=== PATIENT | female | born 1935 | race Caucasian/White ===

== ENCOUNTER 2025-01-27 12:24 | Outpatient (AMB) | payer MEDICARE, SELFPAY ==
--- OUTSIDE RECORDS SUMMARY | 2024-06-12 08:00 | XMS_ITS ---
Author Organization [facility] Address [address] [place] [address] Care Team Providers Care Workers Compensation Attorney Name Role Phone Anna Umana Primary Care Provider Enid Spencer [phone] REASON FOR VISIT r/s for sooner apt Encounters Encounter Location Date Provider Diagnosis [address] [phone] 06/12/2024 Enid Peterson Plan Of Treatment Next Appt Details Provider Name:Enid aguirre, 02/23/2025 11:15:00 AM, [address] [place] [address], [phone], Progress Notes * Lety CENTENOeDOB:[birth year] (89 yo F)Acc No.[id number]:06/12/2024 Progress Note Patient: Karla DOTY Provider: Penny Peterson DPM :1935 A ge:88 Y S ex:Female Date:06/12/2024 Address:[address] [place], [place] [id number] Pcp:Anna Umana Subjective: * Chief Complaints: * 1 . R/s for sooner apt. * Medical History: Objective: * Vitals: Assessment: Plan: * Treatment: * Images: * The named appointment provid er may or may not be the originator of this progress note, and it is not deemed complete until electronically signed by the appointment provider. Sign off status: Pending * Provider: Penny Peterson, DPVera Date: 0 06/12/2024 Generated for Vahid barrientos/Conrad/Prem on: 0 01/27/2025 02:56 PM EDT
--- NOTE | 2025-01-27 12:27 | A.OFFVIS_ITS ---
Intake Visit Reasons: 3M FERREIRA Depression Allergies No Known Allergies Allergy (Verified 01/27/25 12:35) Medication List - Last Reconciled 01/27/25 by Giovana Navarro CNP amiodarone 200 mg PO DAILY apixaban (Eliquis) 5 mg PO BID atorvastatin 80 mg PO DAILY imzlqecfox-zusjkdmisrcie-xnpb 50-325-40 mg 2 tabs PO DAILY PRN calcium carbonate 500 mg PO BID carvedilol 12.5 mg PO BID cholecalciferol (vitamin D3) 50 mcg PO DAILY dapagliflozin propanediol (Farxiga) 10 mg PO DAILY insulin glargine (Lantus Solostar U-100 Insulin) 29 units subcut BEDTIME loperamide 2 mg PO QID PRN metformin 1,000 mg PO BID sertraline 25 mg PO DAILY 90 days torsemide 20 mg PO DAILY venlafaxine ER 150 mg PO QAM HPI Comments Details: 89-year-old woman with h/o lymphoma s/p chemo, diabetes, HTN, CAD s/p CABG, RLS, 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 She was doing okay. Headaches were about the same. She was using Tylenol as needed which helped some, along with ice and topical CBD. Mood was so-so. She was doing some exercises, including yoga. Walking with walker, no falls. She also enjoyed coloring. [facility] Medical History (Updated 01/27/25 @ 12:32 by Giovana Navarro CNP) HLD (hyperlipidemia) GERD (gastroesophageal reflux disease) Extrapyramidal and movement disorder, unspecified Depression Anxiety Lymphoma RLS (restless legs syndrome) Temporomandibular disorder Chronic headache Diabetes mellitus Surgical History (Updated 01/19/25 @ 14:54 by MARRY Dave) S/P hip replacement Review of Systems Const Denies chills, Denies daytime sleepiness, Denies difficulty sleeping, Denies fatigue, Denies fever(s), Denies frequent falls, Reports headache(s), Denies increased appetite, Denies poor appetite, Denies snoring, Denies weakness, Denies weight gain and Denies weight loss Eyes Denies loss of vision ENT Denies vertigo, Denies dizziness and Reports headache(s) Card Denies chest pain at rest, Denies chest pain with activity, Denies syncope, Denies leg edema and Denies palpitations Resp Denies snoring GI Denies constipation, Denies heartburn, Denies diarrhea and Denies nausea Denies urinary frequency, Denies urinary incontinence and Denies urinary urgency Musc Reports abnormal gait (balance difficulty), Denies numbness and Denies tingling Skin/Breast Denies dry skin and Denies rash Neuro Reports abnormal gait (balance difficulty), Denies vertigo, Denies dizziness, Denies syncope, Denies frequent falls, Reports headache(s), Denies lack of coordination, Denies loss of vision, Denies memory loss, Denies numbness, Denies restless legs, Denies seizure-like activity, Denies tingling, Denies paresthesias, Denies tremor(s) and Denies weakness Psych Reports anxiety, Reports depression, Denies auditory hallucinations, Denies memory loss, Denies visual hallucinations and Denies suicidal ideation Endo Denies fatigue and Denies palpitations Physical Exam Const Other: General Appearance:? normal, in no acute distress. Skin:? no rashes, no significant birthmarks. Heart:? S1, S2 normal, no murmurs. Lungs:? clear anteriorly and posteriorly. Extremities:? no edema. Psych:? alert, oriented, cognitive function intact, cooperative with exam. Neuro Other: Mental Status:?Normal attention, orientation, memory and affect.? Cranial Nerves:?Pupils are equal, round and reactive to light. External occular muscles are intact. Visual phelps are full. Face is symmetrical. Facial sensations are normal. Tongue is midline. Palate elevates symmetrically. Shoulder shrugging is normal. Hearing to bedside conversation is decreased. Sensory Exam:?....? Coordination:?No ataxia,?no titubation.? Gait Exam: With walker. Cerebellar Signs:?Efgwnr-uo-yfof is okay. Extrapyramidal System:?No tremor, rigidity with normal facial expressions.? Pronator Drift:?Not present.? Involuntary Movements:?No tremors seen.? Speech:?Normal.? Results Reviewed Results Reviewed: [place] [facility] [place] OP: 17cm, WBCs 2, RBCs 0, Glu 70, Pro 33.2, IgG ind: WNL, OCBs: 3 in serum and CSF, Cytology: neg. 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, mild MVD Assessment & Plan Assessment & Plan (1) Chronic headache: Code(s): R51.9 - Headache, unspecified; G89.29 - Other chronic pain Category: Medical Qualifiers: Headache type: unspecified Intractability: not intractable Qualified Code(s): R51.9 - Headache, unspecified; G89.29 - Other chronic pain Plan: Continue venlafaxine HCl ER 150mg 1 capsule daily Continue kkgnzbeytq-FWJC-gsot 50-325-40mg 2 tablets as needed for headache #10 for 30 days (2) Temporomandibular disorder: Code(s): M26.609 - Unspecified temporomandibular joint disorder, unspecified side Category: Medical (3) RLS (restless legs syndrome): Code(s): G25.81 - Restless legs syndrome Category: Medical (4) Depression: Code(s): F32.A - Depression, unspecified Category: Medical Qualifiers: Depression Type: unspecified Qualified Code(s): F32.A - Depression, unspecified Plan: Continue sertraline 25mg 1 tablet daily. Plan Meds tried: Topiramate, Venlafaxine, Cyclobenzperine, (Amitryptiline, and beta blockers are contraindicated), Depakote, Ajovy, Aimovig, gabapentin, nurtec Coding Level of Care Code Est Pt Level 4 (07756) Diagnoses Chronic nonintractable headache, unspecified headache type R51.9; G89.29 Headache type: unspecified Intractability: not intractable Temporomandibular disorder M26.609 RLS (restless legs syndrome) G25.81 Depression, unspecified depression type F32.A Depression Type: unspecified
--- OUTSIDE RECORDS SUMMARY | 2025-01-27 14:57 | XMS_ITS ---
Author Name [facility] Organization Unknown Care Team Organization Name Specialty Phone Email Start Date End Da [facility] 01/13/2025 [facility] Anna Umana Primary Care 04/03/2022
--- OUTSIDE RECORDS SUMMARY | 2025-01-27 14:57 | XMS_ITS | Clinical Summary ---
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 Active venlafaxine XR (EFFEXOR-XR) 150 mg 24 hr capsule Take 1 Capsule by mouth every morning. Active loperamide (IMODIUM) 2 mg capsule Take 1 capsule (2 mg total) by mouth 4 (four) times a day if needed for diarrhea. 12/31/19 24 Active freestyle (FreeStyle Lancets) 28 gauge lancets Use to test blood sugar bid dxe11.9 200 each 1 04/22/20 24 Active butalbital-acet aminophen-caffe ine (FIORICET, ESGIC) 50-325-40 mg per tablet Take 2 tablets by mouth 1 (one) time each day if needed for headaches. 03/27/20 24 Active calcium carbonate 1,500 mg (600 mg elemental calcium) tablet Take by mouth 2 (two) times a day. Active melatonin 3 mg tablet Take 1 tablet (3 mg total) by mouth at bedtime. Active sertraline (ZOLOFT) 25 mg tablet Take 1 tablet (25 mg total) by mouth 1 (one) time each day. 03/26/20 24 Active blood sugar diagnostic (FreeStyle Lite Strips) test strip Use to test blood sugar bid dxe11.9 200 each 1 04/22/20 24 Active ascorbic acid (VITAMIN C) 250 mg tablet Take 1 tablet (250 mg total) by mouth 2 (two) times a day. Active Lactobacillus acidophilus (Probiotic Acidophilus) 250 million cell capsule Take 1 capsule by mouth 1 (one) time each day. Active apixaban (ELIQUIS) 5 mg tablet Take 1 tablet (5 mg total) by mouth 2 (two) times a day. 180 tablet 1 06/23/19 25 Active sacubitriL-vals anuj (ENTRESTO) 49-51 mg per tablet Take 1 tablet by mouth 2 (two) times a day. 180 tablet 3 06/23/19 25 Active carvediloL (Coreg) 12.5 mg tablet Take 1 tablet (12.5 mg total) by mouth 2 (two) times a day with meals. 180 each 1 06/23/19 25 Active pen needle, diabetic (Pen Needle) 31 gauge x 3/16 needleIndicatio ns:Controlled type 2 diabetes mellitus with microalbuminuri a, with long-term current use of insulin (CMS/[facility] V24, CMS/HCC V28) Inject 1 each under the skin 1 (one) time each day. 100 each 3 07/30/19 25 Active torsemide (DEMADEX) 20 mg tablet TAKE 1 TABLET(20 MG) BY MOUTH 1 TIME EACH DAY 90 tablet 1 12/10/19 25 Active amiodarone (PACERONE) 200 mg tablet TAKE 1 TABLET(200 MG) BY MOUTH 1 TIME EACH DAY 90 tablet 1 12/10/19 25 Active Lantus Solostar U-100 Insulin 100 unit/mL (3 mL) injection pen INJECT 29 UNITS SUBCUTANEOUS AT BEDTIME 45 mL 12/11/19 25 Active dapagliflozin propanediol (FARXIGA) 10 mg tablet Take 1 tablet (10 mg total) by mouth 1 (one) time each day. 90 tablet 1 12/17/19 25 Active pantoprazole (PROTONIX) 20 mg EC tablet Take 1 tablet (20 mg total) by mouth 1 (one) time each day before breakfast. 90 tablet 1 12/19/19 25 Active atorvastatin (LIPITOR) 80 mg tablet Take 1 tablet (80 mg total) by mouth at bedtime. 90 tablet 1 01/05/20 25 Active atorvastatin (LIPITOR) 80 mg tablet Take 1 tablet (80 mg total) by mouth at bedtime. 90 tablet 1 06/22/19 25 025 Discontin ued(Reord er) Active Problems Problem Noted Date Diagnosed Date Acute on chronic diastolic ( congestive) heart failure ([facility] V24, [facility] V28) 10/15/2024 Assessment & Plan (10/15/2024 1:06 PM EDT): Orthostatic hypotension 06/22/2024 Takotsubo syndrome 06/22/2024 Adrenal nodule ([facility] V24) 06/03/2024 CHF (congestive heart failure) ([facility] V24, [facility] /[facility] V28) 05/31/2024 Assessment & Plan (10/15/2024 1:06 PM EDT): Microalbuminuria 04/01/2017 Snoring 03/11/2017 Overview (02/27/2024): 03/06/2017 Home Sleep Study did not reveal sleep apnea. Lung nodule 09/10/2016 Overview (02/27/2024): 5 mm right, others smaller 10/09, no change 10/10 Atrial fibrillation ([facility] V24, [facility] V28) 1 07/01/2015 Overview (05/31/2024): Post op CABG Assessment & Plan (11/03/2024 10:35 AM EDT): Orders: ECG 12 lead Assessment & Plan (10/15/2024 1:06 PM EDT): Assessment & Plan (06/30/2024 1:09 PM EST): Orders: ECG 12 lead Transthoracic echocardiogram (TTE) complete with PRN contrast, bubble, strain, and 3D order panel; Future Carotid stenosis 04/09/2016 Overview (02/27/2024): Bilateral 50-69% 04/11 Peripheral arterial disease ([facility] V24) 2015 Intramural leiomyoma of uterus 09/28/2015 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 09/20/2015 Depression 08/25/2015 Tubular adenoma 06/29/2015 Overview (02/27/2024): 2 tubular adenomas 06/11; no further surveillance CN recommended Osteoporotic fracture of rig ht hip ([facility] V24, [facility] V28) 01/15/2011 Overview (02/27/2024): 11/15 right, fracture neck of the femur; ORIF Heartburn 04/18/2010 Chronic tension headaches 04/11/2010 Overview (02/27/2024): With jaw pain; was seeing Frannie Fang CAD (coronary artery disease) 06/08/2008 Overview (02/27/2024): Taxus RCA and LCx 75% left main disease; CABG x 3 04/11 Assessment & Plan (10/15/2024 1:06 PM EDT): Orders: Comprehensive metabolic panel; Future Hyperlipidemia 07/25/2006 Assessment & Plan (10/15/2024 1:06 PM EDT): Orders: Lipid panel with reflex to direct LDL; Future Hypertension 03/01/2006 Assessment & Plan (10/15/2024 1:06 PM EDT): Orders: Comprehensive metabolic panel; Future Osteoporosis 11/16/2005 Other psoriasis 11/16/2005 DM (diabetes mellitus), type 2 with renal complications ([facility] V24, [facility] V28) Assessment & Plan (10/15/2024 1:06 PM EDT): Orders: Hemoglobin A1c; Future Comprehensive metabolic panel; Future History of lymphoma Overview (10/15/2024): 2007, treated Resolved Problems Problem Noted Date Diagnosed Date Resolved Date Acute systolic congestive he art failure ([facility] V24, [facility] V28) 06/03/2024 06/03/2024 Encounters Date Type Department Care Team Description 01/20/2025 11:00 AM EDT Office Visit Endocrinology - [address] [phone] Best Pretty MD Adrenal nodule ([facility] V24) (Primary Dx) 11/17/2024 9:37 AM EDT - 11/17/2024 11:59 PM EDT Hospital Encounter Radiology Department - [address] [phone] Adrenal nodule ([facility] V24) Discharge Disposition: Home or Self Care 11/03/2024 9:50 AM EDT Office Visit [facility] [address] [facility] [address] [place] [address] Davon Hope MD Atrial fibrillation, unspecified type ([facility]/HCC V24, CMS/HCC V28) (Primary Dx); Cardiomyopathy, unspecified type ([facility] V24, [facility]/HCC V28) from Last 3 Months Immunizations Name Administration Dates Next Due Influenza trivalent, 0.5mL ( Fluzone High-dose) 65yo and older 02/11/2023,03/30/2022,02/23/2021,02/22,02/17/2019,03/05/2018,02/06/2017 ,02/01/2016,02/01/2015,02/13/2012,10/2010 Influenza trivalent, with pr eservative (Fluzone; Afluria) 6mo and older 02/24/2013,03/22/2008,05/13/2007 PPD Test 05/09/2007 Pneumococcal conjugate 13 va lent (Prevnar 13, PCV13) 2mo and older 02/23/2015 Pneumococcal polysaccharide 23 valent (Pneumovax 23) 2yo and older 07/25/2006 Td Tetanus diptheria (Tdvax) 7yo and older 01/24/2024 Tdap Tetanus diptheria acell ular pertussis (Boostrix; Adacel) 7yo and older 10/21/2013 Zoster Live 10/08/2014 Surgical History Surgery Date Site/Laterality Comments OTHER SURGICAL HISTORY : LEFT HIP PARTIAL ARTHROPLASTY ESOPHAGOGASTRODUODENOSCOPY 01/05/11 : streaky antral gastritis; no H. pylori COLONOSCOPY 05/30/12 adenomas, hemorrhoids and tics. Repeat in 3 yrs COLONOSCOPY 06/21/15 : adenomas and tics; would not repeat SCREENING MAMMOGRAM 04/03/2024 Bilateral Medical History Medical History Date Comments Essential hypertension, benign 03/01/2006 Coronary atherosclerosis of unspecified type of vessel, [place] or graft 07/25/2006 cath 07/03 [facility]- stents in RCA and circumflex Pure hypercholesterolemia 07/25/2006 Lymphoma ([facility] V24, [facility] V28) Hypertension 03/01/2006 Hyperlipidemia 07/25/2006 Tubular adenoma 06/29/2015 2 tubular adenom as 06/11; no further surveillance CN recommended History of radius fracture 04/09/2016 Commi nuted right radial fracture 03/11 Carotid stenosis 04/09/2016 Bilateral 50-69 % 04/11 Atrial fibrillation ([facility] [place], [facility] V28) 04/30/2016 Post CABG 04/11 Lung nodule 09/10/2016 Microalbuminuria 04/01/2017 DM (diabetes mellitus), type 2 with renal complications ([facility] [place], [facility] V28) 04/01/2017 Fecal urgency CHF (congestive heart failur e) ([facility] [place], [facility] V28) 05/31/2024 Adrenal nodule ([facility] [place]24) 06/03/2024 Anxiety and depression Family History Medical History Relation Name Comments Heart attack Brother 1 age 76 Colon cancer Brother 2 Prostate cancer Father Stroke Mother Breast cancer Neg Hx Relation Name Status Comments Brother 1 Brother 2 Father Alive Mother Alive Social History Tobacco Use Types Packs/Day Years Used Date Smoking Tobacco: Former Cigarettes Q uit: 05/27/1983 Smokeless Tobacco: Never Tobacco Cessation:Counseling Given: Not Answered Alcohol Use Standard Drinks/Week Comments Yes 0 (1 standard drink = 0.6 oz pur e alcohol) Housing Instability Answer Date Recorde d Are you worried that in the next 2 months you may not have stable housing? No 10/15/2024 Food Access & Nutrition Answer Date Rec orded Do you have access to a vari ety of food including fruits and vegetables? No 10/15/2024 Access to Healthcare Answer Date Record ed Within the last 3 months, ho w many times did you visit the emergency department for your medical care? 0 10/15/2024 Financial Risk Answer Date Recorded How hard is it for you to pa y for the very basics like food, housing, medical care, and air conditioning / heating? Not very hard 10/15/2024 Transportation Answer Date Recorded Has the lack of transportati on kept you from meetings, work, or from getting things needed for daily living? No Has the lack of transportati on kept you from medical appointments or from getting medications? No 10/15/2024 Social Isolation Answer Date Recorded How often do you feel lonely or isolated from th ose around you? Never 10/15/2024 Food Risk Answer Date Recorded Within the past 12 months we worried whether our food would run out before we got money to buy more. Never true 10/15/2024 Within the past 12 months th e food we bought just didn't last and we didn't have money to get more. Never true 10/15/2024 Dependent Care Answer Date Recorded Do you need help finding or paying for care for your loved ones. For example, assistant child care teacher or elderly care for an older adult? No 10/15/2024 Education Answer Date Recorded Do you think completing more education or training, like finishing a GED, going to college, or learning a trade, would be helpful for you? N/A 10/15/2024 Employment and Income Answer Date Recor ded During the last four weeks, have you been actively looking for work? No 10/15/2024 Living Situation Answer Date Recorded What is your living situation? 0 10/15/2024 Comments Unknown Sex and Gender Information Value Date Recorded Sex Assigned at Not on file Legal Sex Female 7:14 AM EST Gender Identity Not on file Sexual Orientation Not on file Obstetrics History Para Term AB IAB SAB Ectopic Multiple Livin g Live Births 0 0 0 Last Filed Vital Signs Vital Sign Reading Time Taken Comments Blood Pressure 126/53 01/20/2025 11:04 AM EDT Pulse 61 11/03/2024 9:49 AM EDT Temperature 36.5 C (97.7 F) 01/20/2025 11:04 AM EDT Respiratory Rate 14 01/20/2025 11:04 AM EDT Oxygen Saturation 97% 11/03/2024 9:49 AM EDT Inhaled Oxygen Concentration - - Weight 64 kg (141 lb) 01/20/2025 11:04 AM EDT Height 152.4 cm (5') 01/20/2025 11:04 AM EDT Body Mass Index 27.54 01/20/2025 11:04 AM EDT Plan of Treatment Upcoming Encounters Date Type Department Care Team (Late st Contact Info) Description 02/05/2025 12:45 PM EDT Office Visit Adult Medicine [facility] [address] [place], [place] [phone] Anna Umana MD [address] [place], [place] 05/12/2025 1:30 PM EST Office Visit Vascular Surgery - [place] [address] [place] [address] Tami Iniguez MD [address] [place] [phone] Health Maintenance Due Date Last Done Comments Diabetes: Annual Retina Eye Exam 10/21/1945 RSV Immunization Adult Patients (1 - 1-dose 75+ series) 2012 Zoster Vaccines (1 of 2) 12/03/2014 10/08/2014 Diabetes: Annual Foot Exam 12/17/2024 12/18/2023 COVID-19 Vaccine ( season) 2025 06/01/2021, 09/29/2020, 09/07/2020 Influenza Vaccine (#1) 2025 , 03/30/2022, 02/23/2021, Additional history exists Diabetes: Blood Sugar Control Test (HGBA1C) 04/17/2025 10/15/2024, 06/03/2024, 12/26/2023, Additional history exists Falls Risk Assessment 10/15/2025 10/15/2024 , 10/15/2024, 12/26/2023 Hypertension/CHF/CAD Annual BMP Blood Test 10/15/2025 10/15/2024, 06/19/2024, 06/03/2024, Additional history exists Medicare Annual Wellness Visit 10/15/2025 10/15/2024 Social Influencers of Health Screening 10/15/2025 10/15/2024 Cholesterol Screening (Lipid Panel) 10/15/2029 10/15/2024, 09/25/2023, 09/25/2023 Osteoporosis Screening (Bone Density Screening) 06/24/2033 06/24/2023 DTaP,Tdap,and Td Vaccines (3 - Td or Tdap) 01/23/2034 01/24/2024, 10/21/2013 Pneumococcal Vaccine: 50+ Years Completed 02/23/2015, 07/25/2006 Depression Screening Completed 10/15/2024 HIB Vaccines Aged Out No longer eligi ble based on patient's age to complete this topic HPV Vaccines Aged Out No longer eligi ble based on patient's age to complete this topic Hepatitis A Vaccines Aged Out No long er eligible based on patient's age to complete this topic Hepatitis B Vaccines Aged Out No long er eligible based on patient's age to complete this topic IPV Vaccines Aged Out No longer eligi ble based on patient's age to complete this topic MMR Vaccines Aged Out No longer eligi ble based on patient's age to complete this topic Meningococcal ACWY Vaccine Aged Out N o longer eligible based on patient's age to complete this topic Meningococcal B Vaccine Aged Out No l onger eligible based on patient's age to complete this topic RSV Immunization Patients Under 20 months Aged Out No longer eligible based on patient's age to complete this topic Varicella Vaccines Aged Out No longer eligible based on patient's age to complete this topic Procedures Procedure Name Priority Date/Time Associated Diagnosis Comments MR ABDOMEN WO AND W CONTRAST Routine 11/17/2024 10:37 AM EDT Adrenal nodule ([facility]/HCC V24) ECG 12-LEAD Routine 11/03/2024 9:56 AM EDT Atrial fibrillation, unspecified type (CMS/HCC V24, CMS/HCC V28) METANEPHRINES, PLASMA FREE Routine 10/30/2024 1:38 PM EDT Adrenal nodule (CMS/HCC V24) COMPREHENSIVE METABOLIC PANEL Routine 10/15/2024 1:30 PM EDT Coronary artery disease involving [place] coronary artery of [place] heart without angina pectoris Primary hypertension Type 2 diabetes mellitus with stage 3 chronic kidney disease, with long-term current use of insulin, unspecified whether stage 3a or 3b CKD ([facility] V24, [facility] V28) HEMOGLOBIN A1C Routine 10/15/2024 1:30 PM EDT Type 2 diabetes mellitus with stage 3 chronic kidney disease, with long-term current use of insulin, unspecified whether stage 3a or 3b CKD ([facility] V24, [facility] V28) LIPID PANEL WITH REFLEX TO DIRECT LDL Routine 10/15/2024 1:30 PM EDT Other hyperlipidemia FALLS RISK ASSESSMENT Routine 12/26/2023 DIABETES FOOT EXAM Routine 12/18/2023 DXA BONE DENSITY STUDY 1+ SITS AXIAL SKEL Routine 06/24/2023 2:18 PM EST Age-related osteoporosis without current pathological fracture from Last 3 Months or Most Recently Relevant to Health Maintenance Results * MR Abdomen wo and w Contrast (11/17/2024 10:37 AM EDT) Anatomical Region Laterality Modality Body Magnetic Resonan ce 11/17/2024 8:32 PM EDT Narrative 11/17/2024 8:42 PM EDT MRI of the abdomen without and with intravenous contrast. History left adrenal mass. Examination was performed on 1.5 Ashley magnet without administration of intravenous contrast followed by postcontrast study after administration of 12 mL of DOTAREM. No prior MRI examinations are available for comparison. There is are 1.6 x 1.8 x 1.6 cm left adrenal nodule which revealed significant signal drop on out of phase images suggestive of high lipid content. There is no abnormal enhancement. Right adrenal gland is unremarkable. No focal abnormalities were identified in the liver, spleen, pancreas and kidneys. Gallbladder is unremarkable. There is no biliary ducts dilatation. There is no ascites. CONCLUSIONS: Small left adrenal nodule with some signal drop on out of phase images suggestive of lipid rich adenoma. -------- FINAL REPORT -------- Dictated By: Samantha Gaytan Dictated Date: 11/17/2024 20:32 ET Assigned Physician: Samantha Gaytan Reviewed and Electronically Signed By: Samantha Gaytan Signed Date: 11/17/2024 20:42 ET Workstation ID: [id number] Transcribed By: Self Edit Transcribed Date: 11/17/2024 20:32 ET Procedure Note Samantha Gaytan MD - 11/17/2024 MRI of the abdomen without and with intravenous contrast. History left adrenal mass. Examination was performed on 1.5 Ashley magnet without administration ofintravenous contrast followed by postcontrast study after administrationof 12 mL of DOTAREM. No prior MRI examinations are available for comparison. There is are 1.6 x 1.8 x 1.6 cm left adrenal nodule which revealedsignificant signal drop on out of phase images suggestive of high lipidcontent. There is no abnormal enhancement. Right adrenal gland is unremarkable. No focal abnormalities wereidentified in the liver, spleen, pancreas and kidneys. Gallbladder isunremarkable. There is no biliary ducts dilatation. There is no ascites. CONCLUSIONS: Small left adrenal nodule with some signal drop on out ofphase images suggestive of lipid rich adenoma. -------- FINAL REPORT -------- Dictated By: Samantha Gaytan Dictated Date: 11/17/2024 20:32 ET Assigned Physician: Samantah Gaytan Reviewed and Electronically Signed By: Samantha Gaytan Signed Date: 11/17/2024 20:42 ET Workstation ID: [id number] Transcribed By: Self Edit Transcribed Date: 11/17/2024 20:32 ET us Best Pretty MD [facility] [place] PROCEDURES Final Result * ECG 12 lead (11/03/2024 9:56 AM EDT) Ventricular Rate ECG 61 BPM GEMUSE Atrial Rate 61 BPM GEMUSE P-R Interval 232 ms GEMUSE QRS Duration 110 ms GEMUSE Q-T Interval 450 ms GEMUSE QTc 453 ms GEMUSE P Wave [place] 79 degrees GEMUSE R [place] -51 degrees GEMUSE T [place] 103 degrees GEMUSE ECG Interpretation Sinus rhythm with 1st degree A-V block Left axis deviation Anteroseptal infarct (cited on or before 23-JUN-2024) ST and T wave abnormality, consider lateral ischemia Abnormal ECG When compared with ECG of 23-JUN-2024 11:19, NE interval has increased T wave inversion less evident in Lateral leads Confirmed by MD Hope Christopher ([id number]) on 11/03/2024 10:55:02 AM GEMUSE 11/03/2024 9:56 AM EDT 11/03/2024 10:55 AM EDT us Davon Hope MD ECG ORDERABLES Final Res ult GEMUSE * (ABNORMAL) Metanephrines, plasma free (10/30/2024 1:38 PM EDT) Metanephrines Free 31 < OR = 57 pg/mL 11/05/2024 4:36 PM EDT [facility] Comment: This test was developed and its analytical performance characteristics have been determined by [facility]. It has not been cleared or approved by the FDA. This assay has been validated pursuant to the CLIA regulations and is used for clinical purposes. Normetanephrine Free 212(H) < OR = 148 pg/mL 11/05/2024 4:36 PM EDT [facility] Comment: This test was developed and its analytical performance characteristics have been determined by [facility]. It has not been cleared or approved by the FDA. This assay has been validated pursuant to the CLIA regulations and is used for clinical purposes. Total, Free (MN + NMN) 243(H) < OR = 205 pg/mL 11/05/2024 4:36 PM EDT [facility] Comment: Elevations > 4-fold upper reference range: strongly suggestive of a pheochromocytoma(1). Elevations >1 - 4-fold upper reference range: significant but not diagnostic, may be due to medications or stress. Suggest running 24 hr urine fractionated metanephrines and serum Chromogranin A for confirmation. Reference: (1) Ileana Sinha et al, Plasma Chromogranin A or Urine Fractionated Metanephrines Follow-Up Testing Improves the Diagnostic Accuracy of Plasma Fractionated Metanephrines for Pheochromocytoma. The Journal of Clinical Endocrinology and Metabolism 93 (1),91-95, 2008. For additional information, please refer to http://education.Stripe/faq/MetFractFree (This link is being provided for informational/educational purposes only.) This test was developed and its analytical performance characteristics have been determined by [facility]. It has not been cleared or approved by the FDA. This assay has been validated pursuant to the CLIA regulations and is used for clinical purposes. Test Performed at: [facility] [address] [phone] Fahad Romero MD, PhD, LYNETTE Blood Venous blood specimen / Unknown Venipuncture / Unknown 10/30/2024 1:38 PM EDT 10/30/2024 2:06 PM EDT us Best Pretty MD LAB BLOOD ORDERABLES Final Resul t [facility] [address] [place] [address] * (ABNORMAL) Lipid panel with reflex to direct LDL (10/15/2024 1:30 PM EDT) Cholesterol 134 0 - 200 mg/dL LAB CHEMISTRY METHOD 10/15/2024 5:22 PM EDT [facility] Triglycerides 180(H) 0 - 150 mg/dL LAB CHEMISTRY METHOD 10/15/2024 5:22 PM EDT [facility] HDL 66 >=40 mg/dL LAB CHEMISTRY METHOD 10/15/2024 5:22 PM EDT [facility] LDL Calculated 32 0 - 100 mg/dL LAB CHEMISTRY METHOD 10/15/2024 5:22 PM EDT [facility] VLDL Cholesterol Beto 36 mg/dL LAB CHEMISTRY METHOD 10/15/2024 5:22 PM EDT [facility] Non HDL Chol. (LDL+VLDL) 68 <145 mg/dL LAB CHEMISTRY METHOD 10/15/2024 5:22 PM EDT [facility] Chol/HDL Ratio 2.0 0.0 - 4.4 LAB CHEMISTRY METHOD 10/15/2024 5:22 PM EDT [facility] Blood Venous blood specimen / Unknown Venipuncture / Unknown 10/15/2024 1:30 PM EDT 10/15/2024 1:30 PM EDT us Anna Umana MD LAB BLOOD ORDERABLES Final Resul t Performing Organization Address [facility]/ZIP Co de Phone Number [facility] [address] [place] [address], [place] [phone] * (ABNORMAL) Hemoglobin A1c (10/15/2024 1:30 PM EDT) Hemoglobin A1C 7.2(H) <6.5 % LAB CHEMISTRY METHOD 10/18/2024 11:20 AM EDT [facility] Mean Bld Glu Estim. 160 mg/dL LAB CHEMISTRY METHOD 10/18/2024 11:20 AM EDT [facility] Blood Venous blood specimen / Unknown Venipuncture / Unknown 10/15/2024 1:30 PM EDT 10/15/2024 1:30 PM EDT us Anna Umana MD LAB BLOOD ORDERABLES Final Resul t [facility] [address] [place] [address], [place] [phone] * (ABNORMAL) Comprehensive metabolic panel (10/15/2024 1:30 PM EDT) Sodium 139 133 - 145 mmol/L LAB CHEMISTRY METHOD 10/15/2024 5:22 PM EDT [facility] Potassium 5.1 3.5 - 5.5 mmol/L LAB CHEMISTRY METHOD 10/15/2024 5:22 PM [facility] Chloride 105 96 - 110 mmol/L LAB CHEMISTRY METHOD 10/15/2024 5:22 PM [facility] CO2 25 21 - 32 mmol/L LAB CHEMISTRY METHOD 10/15/2024 5:22 PM [facility] Anion Gap 9 3 - 11 LAB CHEMISTRY METHOD 10/15/2024 5:22 PM [facility] Glucose 223(H) 70 - 100 mg/dL LAB CHEMISTRY METHOD 10/15/2024 5:22 PM [facility] BUN 31(H) 5 - 25 mg/dL LAB CHEMISTRY METHOD 10/15/2024 5:22 PM [facility] Creatinine 2.09(H) 0.50 - 1.10 mg/dL LAB CHEMISTRY METHOD 10/15/2024 5:22 PM [facility] eGFR 23(L) >=60 mL/min/1. 73m2 LAB CHEMISTRY METHOD 10/15/2024 5:22 PM [facility] Comment:Calculation based on the Chronic Kidney Disease Epidemiology Collaboration (CKD-EPI) equation refit without adjustment for race. BUN/Creatinine Ratio 14.8 LAB CHEMISTRY METHOD 10/15/2024 5:22 PM [facility] Calcium 9.0 8.5 - 10.5 mg/dL LAB CHEMISTRY METHOD 10/15/2024 5:22 PM [facility] AST (SGOT) 18 10 - 42 unit/L LAB CHEMISTRY METHOD 10/15/2024 5:22 PM [facility] ALT (SGPT) 26 10 - 60 unit/L LAB CHEMISTRY METHOD 10/15/2024 5:22 PM [facility] Alkaline Phosphatase 65 42 - 121 unit/L LAB CHEMISTRY METHOD 10/15/2024 5:22 PM [facility] Total Protein 6.6 6.0 - 8.0 g/dL LAB CHEMISTRY METHOD 10/15/2024 5:22 PM EDT [facility] Albumin 3.5 3.2 - 5.0 g/dL LAB CHEMISTRY METHOD 10/15/2024 5:22 PM EDT [facility] Total Bilirubin 0.3 0.0 - 1.4 mg/dL LAB CHEMISTRY METHOD 10/15/2024 5:22 PM EDT [facility] Blood Venous blood specimen / Unknown Venipuncture / Unknown 10/15/2024 1:30 PM EDT 10/15/2024 1:30 PM EDT us Anna Umana MD LAB BLOOD ORDERABLES Final Resul t [facility] [address] [place] [address], * Falls Risk Assessment (12/26/2023) Falls Risk Assessment abstracted Historical Provider HEALTH MAINTENANCE Final Result * Diabetes Foot Exam (12/18/2023) Pathologist [facility] Diabetes: Annual Foot Exam abstracted Historical Provider HEALTH MAINTENANCE Final Result * DXA BONE DENSITY STUDY 1+ SITS AXIAL SKEL (06/24/2023 2:18 PM EST) Anatomical Region Laterality Modality Bone Densitometr y 08/28/2022 6:42 PM EDT Narrative 06/25/2023 7:39 PM EST STUDY: DUAL ENERGY X-RAY ABSORPTIOMETRY / DXA REASON FOR EXAM: Female, 87 years old osteoporosis TECHNIQUE: Bone Mineral Density (BMD) measurements of the lumbar spine and left forearm were obtained using [employer] W (S/N [id number]). COMPARISON: None FINDINGS: L1-L4 BMD: 0.843 g/cm2 L1-L4 T score: -1.9. This corresponds to osteopenia. Left forearm (1/3 radius) BMD: 0.476 g/cm2 Left forearm (1/3 radius) T score: -3.6. This corresponds to osteoporosis. IMPRESSION: IMPRESSION: Osteoporosis Reference Information: The T-score is the number of standard deviations above or below the standard which is normal for young adults at their peak bone mineral density. The World Health Organization (WHO) interprets the T-scores as follows: At or above -1 SD Normal bone density Between -1 and -2.5 SD Osteopenia At or below -2.5 SD Osteoporosis Procedure Note Harshal Parkinson MD - 01/13/2024 STUDY: DUAL ENERGY X-RAY ABSORPTIOMETRY / DXA REASON FOR EXAM: Female, 87 years old osteoporosis TECHNIQUE: Bone Mineral Density (BMD) measurements of the lumbar spineand left forearm were obtained using [employer] W (S/N [id number]). COMPARISON: None FINDINGS: L1-L4 BMD: 0.843 g/cm2 L1-L4 T score: -1.9. This corresponds to osteopenia. Left forearm (1/3 radius) BMD: 0.476 g/cm2 Left forearm (1/3 radius) T score: -3.6. This corresponds toosteoporosis. IMPRESSION: IMPRESSION: Osteoporosis Reference Information: The T-score is the number of standard deviations above or below thestandard which is normal for young adults at their peak bone mineral density. The World HealthOrganization (WHO) interprets the T-scores as follows: At or above -1 SD Normal bone density Between -1 and -2.5 SD Osteopenia At or below -2.5 SD Osteoporosis us [facility] [facility] IMG DXA PROCEDURES Final Resu lt from Last 3 Months or Most Recently Relevant to Health Maintenance Insurance MEDICARE [facility] Care Teams Rubbing Bed Operator Relationship Specialty Start Date End Date Anna Umana MD [address] [facility] [place] [address] PCP - General Internal Medicine 02/23/15
--- OUTSIDE RECORDS SUMMARY | 2025-01-27 14:57 | XMS_ITS | Patient Health Record ---
Author Organization [facility] Address [address] [place] [address] Care Team Providers Care Topology Professor Name Role Phone Anna Umana Primary Care Provider Enid Spencer Unavailable [phone] Allergies Allergen (clinical drug ingredient) Drug/Non Drug Allergy documented on EMR Reaction Allergy Type Onset Date Status Dairy Milk (uncoded) Unknown Allergy Active ibuprofen Advil Unknown Drug Allergy Active acetaminophen Tylenol Unknown Drug Allergy Act estefany Penicillin Unknown Drug Allergy Active Results Component Value Reference Range Notes HEMOGLOBIN A1C (GLYCOHEMOGLO BIN) Reviewed date:06/09/2024 09:48:04 AM Interpretation: Performing Lab: Notes/Report: HEMOGLOBIN A1C % (HH) 8.0 HEMOGLOBIN A1C (GLYCOHEMOGLO BIN) Reviewed date:11/18/2024 02:52:47 PM Interpretation: Performing Lab: Notes/Report: HEMOGLOBIN A1C % (HH) 7.2 Reason For Referral No Information Medications Medication SIG (Take, Route, Frequency, Duration) Notes Start Date End Date Status Venlafaxine HCl ER 150 MG 1 capsule with food Orally Once a day Active Aspirin 81 MG 1 tablet Orally Once a day Active Insulin Pen Needle A ctive Amoxicillin for dental apts Active Venlafaxine HCl 75 MG 1 tablet with food Orally Once a day Active Calcium 600 MG 1 tablet with meals Orally Twice a day Active Nitroglycerin 0.4 MG as directed Sublingual Active Vitamin D (Ergocalciferol) 50 MCG (1999) 1 capsule Orally Once a day Active Clopidogrel Bisulfate 75 MG 1 tablet Orally Once a day Active metFORMIN HCl 500 MG 1 tablet with a meal Orally Once a day Not-Taking hydroCHLOROthiazide 12.5 MG 1 capsule in the morning Orally Once a day Not-Taking Atorvastatin Calcium 80 MG 1 tablet Orally Once a day Active Lisinopril 30 MG 1 tablet Orally Once a day Not-Taking Carvedilol 25 MG 1 tablet with food Orally Twice a day Active hydrALAZINE HCl 25 MG Oral; Duration: 30 Days Not-Taking Extra Depth Orthopedic Shoes (1 Pair) with Customized Heat Molded Multidensity Innersoles (3 Pair) as directed Dx: NIDDM/Polyneuropath y (E11.42), Hammertoe Foot Deformity (M20.41,M20.42), Preulcerative Skin Lesion(s) (L85.1 12/18/2023 Active cloNIDine HCl 0.1 MG 1 tablet Orally Once a day Active Lantus SoloStar 100 UNIT/ML as directed Subcutaneous Active Pantoprazole Sodium 40 MG 1 tablet Orall y Once a day Active NIFEdipine ER Osmotic Release 60 MG TAKE 1 TABLET BY MOUTH DAILY Oral; Duration: 30 Days Not-Taking Venlafaxine HCl ER 150 MG TAKE 1 CAPSULE BY MOUTH DAILY IN THE MORNING Oral; Duration: 90 Days Active Extra Depth Orthopedic Shoes (1 Pair) with Customized Heat Molded Multidensity Innersoles (3 Pair) as directed Dx: NIDDM/Polyneuropath y (E11.42), Hammertoe Foot Deformity (M20.41,M20.42), Preulcerative Skin Lesion(s) (L85.1 06/09/2024 Active Immunizations Vaccine Route Administration Date Status Comme nts Influenza Unknown 02/25/2023 Administered Influenza Unknown 02/25/2024 Administered Social History Tobacco Use: Social History Observation Description Date Details (start date - stop date) Never Smoker NA - NA Alcohol Screen Question Answer Notes Did you have a drink contain ing alcohol in the past year? Yes How often did you have a dri nk containing alcohol in the past year? Monthly or less (1 point) Points 1 Interpretation Negative Tobacco use other than smoking: Question Answer Notes Are you an other tobacco user? No Tobacco Control (Standard) Question Answer Notes Tobacco use: Nonsmoker Problems Problem Type SNOMED Code ICD Code Onset Dates Problem Status W/U Status Risk Notes Problem Acquired hammer toe of right foot (2686276270813552) Other hammer toe(s) (acquired), right foot (M20.41) Active confirmed Problem Acquired hammer toe of left foot (8697113064423341) Other hammer toe(s) (acquired), left foot (M20.42) Active confirmed Problem Polyneuropathy due to type 2 diabetes mellitus (353318892) Type 2 diabetes mellitus with diabetic polyneuropathy (E11.42) Active confirmed Problem Bilateral atherosclerosis of arteries of lower limbs (disorder) (47765887037169096 ) Atherosclerosis of artery of both lower extremities (I70.203) Active confirmed Vital Signs Blood pressure diastolic 80 mm Hg 11/18/2024 Height 5 ft in 11/18/2024 Blood pressure systolic 130 mm Hg 11/18/2024 Weight 129 lbs 11/18/2024 BMI 25.19 kg/m2 11/18/2024 Encounters Encounter Location Date Provider Diagnosis [address] [address] 03/10/2024 [facility] Atherosclerosis of artery of both lower extremities I70.203 and Type 2 diabetes mellitus with diabetic polyneuropathy E11.[address] [address] 06/09/2024 [facility] Atherosclerosis of artery of both lower extremities I70.203 ; Type 2 diabetes mellitus with diabetic polyneuropathy E11.42 ; Other hammer toe(s) (acquired), right foot M20.41 and Other hammer toe(s) (acquired), left foot M20.[address] [address] 09/09/2024 [facility] Atherosclerosis of artery of both lower extremities I70.203 and Type 2 diabetes mellitus with diabetic polyneuropathy E11.[address] [address] 11/18/2024 [facility] Atherosclerosis of artery of both lower extremities I70.203 and Type 2 diabetes mellitus with diabetic polyneuropathy E11.42 Assessments Encounter Date Diagnosis (ICD Code) Assessment Notes Treatment Notes Treatment Clinical Notes Section Notes 03/10/2024 Atherosclerosis of artery of both lower extremities (ICD-10 - I70.203) 06/09/2024 Atherosclerosis of artery of both lower extremities (ICD-10 - I70.203) 09/09/2024 Type 2 diabetes mellitus with diabetic polyneuropathy (ICD-10 - E11.42) 09/09/2024 Atherosclerosis of artery of both lower extremities (ICD-10 - I70.203) 11/18/2024 Atherosclerosis of artery of both lower extremities (ICD-10 - I70.203) 11/18/2024 Type 2 diabetes mellitus with diabetic polyneuropathy (ICD-10 - E11.42) 03/10/2024 Type 2 diabetes mellitus with diabetic polyneuropathy (ICD-10 - E11.42) 06/09/2024 Type 2 diabetes mellitus with diabetic polyneuropathy (ICD-10 - E11.42) 06/09/2024 Other hammer toe(s) (acquired), right foot (ICD-10 - M20.41) Patient Educated with: DIABETIC FOOT CARE INSTRUCTIONS. pdf (DIABETIC FOOT CARE INSTRUCTIONS. pdf) 06/09/2024 Other hammer toe(s) (acquired), left foot (ICD-10 - M20.42) 09/09/2024 Other Plan Of Treatment Next Appt Details Provider Name:Enid aguirre, 02/23/2025 11:15:00 AM, [address] [place] [address], [phone], Insurance Providers Payer Name Payer Address Payer Phone Subscriber Number Group Number Insured Name Patient Relationship to Insured Coverage Start Date Coverage End Date Medicare National [employer] [address] [place] [address] [id number] StAndKarla mccloud Self - patient is the insured [facility] [address] [place] [address] [id number] Karla Centeno Self - patient is the insured Medical (General) History Medical History History ICD Code Anxiety Arthritis Back,Hip,and Knee pain Broken bones Cancer Cataracts Depression Diabetic Headaches/Migraines Heart disease High blood pressure Numbness Osteoporosis Poor circulation Psychiatric disorder Sickle cell disease Measles Joint implants/screws Surgical History Surgery Date(Month/Year) hip replacement, left bypass surgery Hospitalization History Reason Date(Month/Year) [facility]- fluid in lungs, fast heart beat [facility]- Dizzy, high blood pressure- stayed 4 days 02/16/24
--- OUTSIDE RECORDS SUMMARY | 2025-01-27 14:57 | XMS_ITS | Encounter Summary ---
Author Organization [facility] Address [address] [place] [address] Care Team Providers Care Content Analyst Name Role Phone Anna Umana MD Primary Care Provider [phone] Encounter Details Date Type Department Care Team (Late Contact Info) Description 07/21/2024 Billing Patient Not Present Adult Medicine [address] [phone] Anna Umana MD [address] [place] [address] Social History Tobacco Use Types Packs/Day Years Used Date Smoking Tobacco: Former Cigarettes Q uit: 05/27/1983 Smokeless Tobacco: Never Alcohol Use Standard Drinks/Week Comments Yes 0 (1 standard drink = 0.6 oz pur e alcohol) Comments Unknown Sex and Gender Information Value Date Recorded Sex Assigned at Not on file Legal Sex Female 7:14 AM EST Gender Identity Not on file Sexual Orientation Not on file documented as of this encounter Plan of Treatment Upcoming Encounters Date Type Department Care Team (Late Contact Info) Description 02/05/2025 12:45 PM EDT Office Visit Adult Medicine [address] [phone] Anna Umana MD [address] [place] [address] 05/12/2025 1:30 PM EST Office Visit Vascular Surgery - [place] [address] [facility] [address] [place] [address] Tami Iniguez MD [address] [place] [phone] documented as of this encounter Visit Diagnoses Not on filedocumented in this encounter Care Teams Content Analyst Relationship Specialty Start Date End Date Anna Umana MD [address] [place] [address] PCP - General Internal Medicine 02/23/15 documented as of this encounter
--- OUTSIDE RECORDS SUMMARY | 2025-01-27 14:57 | XMS_ITS ---
Author Organization [facility] Care Team Providers Care Auction Assistant Name Role Phone Celestino Mathews Unavailable Unavailable Allergies and adverse reactions No Known Allergies Care Team Name Role Address Phone Organization Dates Celestino Mathews PCP [address], [address], [place] (Office): [phone] (Fax): [phone] [facility] 10/31/2021 - 12/09/2021 Mental Status Section Date Assessment Total Score Description 12/09/2021 BIMS 15 cognitively int act CAM 0 No delirium ind icated PHQ-9 00 12/05/2021 BIMS 15 cognitively int act CAM 0 No delirium ind icated PHQ-9 02 minimal depress ion Problems Problem # Description Date of onset Resolved Date Code CodeSystem Concern Status 1 HYPO-OSMOLALITY AND HYPONATREMIA 11/08/[address] active 2 AGE-RELATED OSTEOPOROSIS WITH CURRENT PATHOLOGICAL FRACTURE, RIGHT FEMUR, SUBSEQUENT ENCOUNTER FOR FRACTURE WITH ROUTINE HEALING 11/01/[address] active 3 ANGINA PECTORIS, UNSPECIFIED 11/01/[address] active 4 ANXIETY DISORDER, UNSPECIFIED 11/01/[address] active 5 ATHEROSCLEROSIS OF CORONARY ARTERY BYPASS GRAFT(S) WITHOUT ANGINA PECTORIS 11/01/[address] active 6 ATHEROSCLEROTIC HEART DISEASE OF [place] CORONARY ARTERY WITHOUT ANGINA PECTORIS 11/01/[address] active 7 CARDIAC MURMUR, UNSPECIFIED 11/01/[address] active 8 DIZZINESS AND GIDDINESS 11/01/[address] active 9 ENCOUNTER FOR OTHER ORTHOPEDIC AFTERCARE 11/01/[address] active 10 ESSENTIAL (PRIMARY) HYPERTENSION 11/01/[address] active 11 FRACTURE OF UNSPECIFIED PART OF NECK OF RIGHT FEMUR, SUBSEQUENT ENCOUNTER FOR CLOSED FRACTURE WITH ROUTINE HEALING 11/01/[address] active 12 GASTRO-ESOPHAGEAL REFLUX DISEASE WITHOUT ESOPHAGITIS 11/01/[address] active 13 HISTORY OF FALLING 11/01/[address] active 14 HYPERLIPIDEMIA, UNSPECIFIED 11/01/[address] active 15 MAJOR DEPRESSIVE DISORDER, SINGLE EPISODE, UNSPECIFIED 11/01/[address] active 16 MUSCLE WEAKNESS (GENERALIZED) 11/01/[address] active 17 NEW DAILY PERSISTENT HEADACHE (NDPH) 11/01/[address] active 18 OLD MYOCARDIAL INFARCTION 11/01/[address] active 19 OTHER FORMS OF DYSPNEA 11/01/[address] active 20 PAIN DUE TO INTERNAL ORTHOPEDIC PROSTHETIC DEVICES, IMPLANTS AND GRAFTS, SUBSEQUENT ENCOUNTER 11/01/[address] active 21 PERIPHERAL VASCULAR DISEASE, UNSPECIFIED 11/01/[address] active 22 PERSONAL HISTORY OF NICOTINE DEPENDENCE 11/01/[address] active 23 PERSONAL HISTORY OF NON-HODGKIN LYMPHOMAS 11/01/[address] active 24 PRESENCE OF CORONARY ANGIOPLASTY IMPLANT AND GRAFT 11/01/[address] active 25 PRESENCE OF OTHER ORTHOPEDIC JOINT IMPLANTS 11/01/[address] active 26 RESTLESS LEGS SYNDROME 11/01/[address] active 27 TYPE 2 DIABETES MELLITUS WITHOUT COMPLICATIONS 11/01/[address] active 28 UNSPECIFIED ABNORMALITIES OF GAIT AND MOBILITY 11/01/[address] active 29 UNSPECIFIED CATARACT 11/01/[address] active 30 UNSPECIFIED FALL, SUBSEQUENT ENCOUNTER 11/01/[address] active 31 UNSPECIFIED OSTEOARTHRITIS, UNSPECIFIED SITE 11/01/[address] active Reason for Referral No Reasons for Referral Entered Social History Social History Observation Description Start Date End Date Code Code System Current Smoking Status Tobacco smoking consumption unknown 984426712 SNOMED CT Sex Assigned At Female 1935 82747-8 [facility] Gender Identity Vital Signs Code Code System Vitals Name Values and Units Timing Information 8462-4 [facility] Blood Pressure-Diastolic Value=70 Un its=mmHg 12/10/2021 8480-6 [facility] Blood Pressure-Systolic Duapu=304 Un its=mmHg 12/10/2021 2339-0 [facility] Blood Sugar Nbqev=201.0 Units=mg/dL 12/10/2021 62605-1 [facility] Weight Puopp=219.6 Units=Lbs 55027-2 [facility] Pain Level Value=0.0 12/09/2021 9279-1 [facility] Respiratory Rate Value=20.0 Units=/m in 12/07/2021 8310-5 [facility] Body Temperature Value=97.0 Units= F 12/07/2021 93608-7 [facility] O2 % BldC Oximetry Value=96.0 Units= % 12/07/2021 8867-4 [facility] Heart rate Value=84.0 Units=/min 12/2021 8302-2 [facility] Height Value=60.0 Units=Inches 11/01/2021
== END 2025-01-27 12:42 | disposition home or self-care (01) ==
LOC: HO.HSM 12:25
PROVIDERS: PCP Internal Medicine; Referring Provider Internal Medicine; Visit Provider Registered Nurse
DX: R51.9 Headache, unspecified (principal); G89.29 Other chronic pain; M26.609 Unspecified temporomandibular joint disorder, unspecified side; G25.81 Restless legs syndrome; F32.A Depression, unspecified
CPT/HCPCS: 99214

== ENCOUNTER → 2025-01-27 12:24 | Outpatient (BNVA) | payer MEDICARE, SELFPAY | PROVIDERS: PCP Internal Medicine; Referring Provider Internal Medicine; Visit Provider Registered Nurse | DX: R51.9 Headache, unspecified (principal); M26.609 Unspecified temporomandibular joint disorder, unspecified side; G25.81 Restless legs syndrome; F32.A Depression, unspecified; G89.29 Other chronic pain | CPT/HCPCS: 99212 ==